=== PATIENT | female | born 2000 | race Caucasian/White ===

== ENCOUNTER 2025-10-16 16:51 | Emergency (ER) | payer MEDICAID, OTHER ==
[~2025-10-16] VITALS: Ht 157.5 cm; Wt 96.4 kg
[~2025-10-16 16:51] MED LIST: ANTIBIOTIC; IBUP-814 PO; META800T87 PO; NO HOME MEDS
[2025-10-16 17:05] VITALS: TEMP 98.1
--- NOTE | 2025-10-16 17:56 | RADIOLOGY REPORT ---
CLINICAL INDICATION: foot pain TECHNIQUE: DI FOOT, COMPLETE (3VW MIN) right foot Comparison: None FINDINGS/IMPRESSION: : There is no evidence of acute fracture or dislocation. Soft tissues are unremarkable.
--- NOTE | 2025-10-16 20:16 | Physician Documentation ---
History of Present Illness ~ Chief Complaint: Foot pain Stated Complaint: TOE PAIN Time Seen by MD: 19:52 Primary Medical Doctor: ELAINE WHITFIELD HPI 25-year-old female patient presents after injuring her foot while getting in the shower last night. Says she struck her right foot on part of the shower and states it hurts to move her foot and toes also reports pain with weight- bearing Tetanus witin 5 years: Yes Medication Reconciliation Allergies: Coded Allergies: latex (Verified Allergy, Intermediate, itchy, 10/16/25) Scheduled Ibuprofen (Motrin), 600 MG PO TID Metaxalone (Skelaxin), 1 TABLET PO TID Miscellaneous Medications Home Med List (No Home Medications), (Reported) [Antibiotic Po], (Reported) Past Medical History Past Medical History: Chronic Back Pain Past Surgical History: tonsillectomy Alcohol Use: None Drug Use: none Lives with: Family Lives In: Home Occupation: student, child Review of Systems All Other Systems at this time: Reviewed and Negative ROS As stated above in the HPI, otherwise all systems are reviewed and negative. Physical Exam Vital Signs: Temperature: 98.1, Source: Temporal, Heart Rate: 87, Respiratory Rate: 18, BP: 135/81, Pulse Oximetry: 98, Weight: 96.400 Oxygen Flow Rate: 0 Physical Exam General: Alert, no apparent distress. Extremities: Normal range of motion, no deformity. Neurologic: Oriented x4. Psychiatric: Normal mood and affect. Skin: Normal color, warm and dry. No edema, no ecchymosis. Progress Results/Orders Results/Orders Orders - FADY COTO PAIN MANAGEMENT PHYSICIAN Foot, Complete (3vw Min) (10/16/25 17:14) Completed Orders - FADY COTO PAIN MANAGEMENT PHYSICIAN Foot, Complete (3vw Min) (10/16/25 17:14) Vital Signs 10/16/25 17:05 Temp 98.1 Pulse 87 Resp 18 B/P (MAP) 135/81 Pulse Ox 98 O2 Flow Rate 0 Medical Decision Making Additional information obtaine: old records Findings Per my interpretation of the patient's foot x-ray I did not appreciate any signs of acute fracture. I did offer the patient crutches to help with mobility she declined. Recommended taking it easy over the next few days allow healing and to use ibuprofen and ice in 20 minute intervals General Diff Dx:Considerations: Unlikely: Abrasion, Contusion, Fracture, Hematoma, Laceration, Malunion, Neurovascular injury, Open fracture, Sprain, Ulcer, Other Knee Diff Dx:Considerations: Unlikely: Abrasion, Arthritis, Contusion, DJD, Fracture-femur, Fracture-fibula, Fracture-patella, Fracture-tibia, Gout, Hemat damon, Laceration, Meniscus injury, Neurovascular injury, Open fracture, Rheumatoid arthritis, Septic, Sprain, Sprain-MCL, Sprain-LCL, Sprain-ACL, Sprain-PCL, Other Ankle Diff Dx:Considerations: Unlikely: Abrasion, Arthritis, Contusion, DJD, Fracture-metatarsal, Fracture-fibula, Fracture-tarsal, Fracture-tibia, Gout, Hematoma, Laceration, Malunion, Neurovascular injury, Nonunion, Open fracture, Osteomyelitis, Rheumatoid arthritis, Sprain, Septic, Ulcer, Other Foot Diff Dx:Considerations: Include: Abrasion, Arthritis, Cellulitis, Contusion, Dislocation, DJD, Fracture-metatarsal, Fracture-phalynx, Fracture- tarsal, Gout, Hematoma, Ingrown toenail, Laceration, Malunion, Neurovascular injury, Open fracture, Paronychia, Puncture, Rheumatoid, Sprain, Septic, Subungual hematoma, Ulcer, Other Toe Diff Dx:Considerations: Include: Abrasion, Cellulitis, Contusion, Dislocation, Felon, Fracture, Hematoma, Laceration, Neurovascular injury, Open fracture, Paronychia, Subungual hematoma, Other Departure Disposition: 01 HOME / SELF CARE / HOMELESS Impression: Primary Impression: Foot pain Condition: Stable Discharge Instructions: Sprains Referrals: NO PRIMARY CARE PROVIDER (PCP) Education Educated: Patient Signature Scribe Signature: f Attestation: Scribed for Fady Coto Laborer [employer] by Fady Duarte NP . 10/16/25 20:16 FADY COTO NP Oct 16, 2025 20:16
[2025-10-16 20:35] VITALS: BP 128/76; PULSE 79; RESP 15; O2SAT 98
== END 2025-10-16 20:36 | disposition home or self-care (01) ==
LOC: ER 16:52
DX: M79.671 Pain in right foot (principal); Z91.040 Latex allergy status; Z90.89 Acquired absence of other organs
CPT/HCPCS: 73630; 99283; A6449